=== PATIENT | male | born 1995 | race Two or more races ===

== ENCOUNTER 2022-10-23 17:30 | Emergency (ER) | payer OTHER ==
[2022-10-23] MEDS ORDERED: Lidocaine 1% 10 ML MDV INJECT ONE (18:16)
[2022-10-23] MEDS ORDERED: Bupivacaine 0.5% 10 ML SDV INJECT ONE (18:17)
[2022-10-24] MEDS ORDERED: Diphtheria,Pertussis(Acell),Tetanus Vaccine 0.5 ML Syringe IM ONE (14:47)
== END 2022-10-23 20:45 | disposition home or self-care (01) ==
LOC: JD.ED 17:30
DX: S67.190A Crushing injury of right index finger, initial encounter (principal); Z23 Encounter for immunization; W22.8XXA Striking against or struck by other objects, initial encounter; Y92.89 Other specified places as the place of occurrence of the external cause; Y99.0 Civilian activity done for income or pay
CPT/HCPCS: 12002; 73140; 90471; 99283; J3490